=== PATIENT | male | born 1965 | race Caucasian/White ===

== ENCOUNTER 2022-06-24 16:11 | Inpatient (IN) | payer MEDICARE, MEDICAID, SELFPAY ==
--- NOTE | ~2022-06-24 | XR_ITS ---
Clinical Indication: Shortness of breath AP and lateral views of the chest: Comparison: 06/27/2022 Findings: There is mild central congestive change. No focal consolidation or pleural effusion. Cardi omediastinal silhouette is stable, with pacemaker device. Bones and soft tissues are unremarkable. Impression: Mild central congestive change. Stable cardiomegaly with pacemaker device. Reviewed, dictated and finalized at location . Impression: Mild central congestive change. Stable cardiomegaly with pacemaker device.
--- NOTE | ~2022-06-24 | CT_ITS ---
EXAMINATION: CT brain wo con DATE: 06/24/2022 17:26 INDICATION: Altered mental status TECHNIQUE: Computed tomography (CT) of the head was performed without intravenous contrast. Sagittal and coronal reconstructions were performed. The mA was adjusted according to patient size. Iterative reconstruction technique was employed. The dose-length product was 681.00 mGy-cm. COMPARISON: None FINDINGS: Small region of encephalomalacia in the left frontoparietal region consistent with old infarct. Addit ional small old infarcts at the right cerebral hemisphere and at the left basal ganglia involving por tions of the lentiform and caudate nucleus and intervening anterior limb of the internal capsule. Add itional smaller old lacunar infarct at the right thalamus and posterior right basal ganglia. There is mild to moderate scattered white matter hypoattenuation consistent with chronic small vessel ischemi c disease. No acute intracranial hemorrhage, acute infarction or abnormal extra axial fluid collectio n. Symmetric prominence of the sulci and ventricles consistent with mild to moderate diffuse cerebral volume loss. No mass/mass effect. The orbits, paranasal sinuses and mastoid air cells are normal. IMPRESSION: 1. No acute intracranial process. 2. Multiple old infarcts involving the left frontoparietal region, bilateral basal ganglia, right michael lamus and right cerebellar hemisphere. 2. Mild to moderate diffuse volume loss and mild to moderate scattered white matter hypoattenuation c onsistent with chronic small vessel ischemic disease. Reviewed, dictated and finalized at location A. NESS ANALYST SALES OPERATIONS IMPRESSION: 1. No acute intracranial process. 2. Multiple old infarcts involving the left frontoparietal region, bilateral ba felix ganglia, right thalamus and right cerebellar hemisphere. 2. Mild to moderate diffuse volume loss and mild to moderate scattered white ma tter hypoattenuation consistent with chronic small vessel ischemic disease.
--- NOTE | ~2022-06-24 | XR_ITS ---
EXAMINATION: XR chest 2V DATE: 06/24/2022 17:30 INDICATION: Lethargy and altered mental status TECHNIQUE: frontal and lateral views of the chest were obtained. COMPARISON: Chest radiograph dated 06/06/10 FINDINGS: Cardiomegaly with pulmonary vascular congestion. Mild interstitial opacities and peribronchial cuffin g in the bilateral lower lung zones most likely mild pulmonary edema. Very small bilateral pleural ef fusions with blunting at the posterior sulci. No pneumothorax. Dual lead pacemaker/AICD seen with leads projecting over the expected locations of the right atrium a nd right ventricle. IMPRESSION: 1. Mild interstitial opacities and bronchial wall thickening in the lower lung zones and favor conges tive heart failure related mild pulmonary edema over pneumonia. 2. Very small bilateral pleural effusions. 3. Cardiomegaly. Reviewed, dictated and finalized at location A. ARCH CLERK IMPRESSION: 1. Mild interstitial opacities and bronchial wall thickening in the lower lung zones and favor congestive heart failure related mild pulmonary edema over pneu monia. 2. Very small bilateral pleural effusions. 3. Cardiomegaly.
--- NOTE | ~2022-06-24 | CT_ITS ---
EXAMINATION: CT abdomen pelvis w con DATE: 06/24/2022 19:50 INDICATION: Sepsis. Urinary tract infection and lethargy. TECHNIQUE: Computed tomography (CT) of the abdomen and pelvis was performed with 100 mL Omnipaque-350 intravenous contrast. Automated exposure control and iterative reconstruction technique were employe d. The dose-length product was 1153.88 mGy-cm. COMPARISON: None FINDINGS: Small bilateral posterior layering pleural effusions, right greater than left, with associated depend ent compressive atelectasis in the lower lobes. Mild groundglass opacities and minimal peripheral smo oth septal line thickening in the lower lungs consistent with mild pulmonary edema. Moderate cardiome natanael. Atherosclerotic coronary artery calcification is. Dual lead pacemaker/AICD seen with lead tips at the right atrium and right ventricle. No pericardial effusion. Liver, gallbladder, spleen, pancrea s and bilateral adrenal glands are normal. There is calcified atherosclerosis of the aorta and many o f the other arteries including arteries at the bilateral renal kobi. Incidentally noted are 2 accesso ry renal arteries on the right and one additional accessory artery on the left. There is urothelial t hickening at the right renal pelvis suspicious for pyelitis without evident pyelonephritis. Subtle paredes ziness to the fat surrounding the bladder consistent with cystitis and provided history of urinary tr act infection. Bowels including the appendix are normal. No free intraperitoneal gas or fluid. No pat hologically enlarged abdominal or pelvic lymphadenopathy. Moderate thoracic and mild lumbar spondylos is with multilevel moderate to severe facet osteoarthritis. There is also mild to moderate bilateral hip and sacroiliac osteoarthritis. IMPRESSION: 1. Findings suggestive of cystitis and right pyelitis without definitive pyelonephritis. 2. Congestive heart failure with moderate cardiomegaly, mild pulmonary edema and small bilateral pleu ral effusions. Reviewed, dictated and finalized at location A. HING OPERATOR IMPRESSION: 1. Findings suggestive of cystitis and right pyelitis without definitive pyelon ephritis. 2. Congestive heart failure with moderate cardiomegaly, mild pulmonary edema an d small bilateral pleural effusions.
--- NOTE | ~2022-06-24 | XR_ITS ---
EXAMINATION: XR chest 1V portable DATE: 06/27/2022 01:44 INDICATION: Shortness of breath TECHNIQUE: frontal view of the chest was obtained. COMPARISON: Chest radiograph dated 06/24/2022 FINDINGS: Persistent opacities in the left mid to lower and right lower lung zone consistent with likely small bilateral posterior layering pleural effusions and associated atelectasis and/or pneumonia. Cardiomeg jonny. Dual lead pacemaker/AICD seen with leads projecting over the expected locations of the right atr ium and right ventricle. IMPRESSION: 1. Persistent opacities in the left mid to lower and right lower lung zones consistent with small angelita ateral pleural effusions with associated atelectasis and/or pneumonia. 2. Cardiomegaly. Reviewed, dictated and finalized at location A. IMPRESSION: 1. Persistent opacities in the left mid to lower and right lower lung zones con sistent with small bilateral pleural effusions with associated atelectasis and/ or pneumonia. 2. Cardiomegaly.
[2022-06-24 16:15] VITALS: BP 123/67; PULSE 102; RESP 15; O2SAT 98
[2022-06-24 16:40] VITALS: BP 148/92; PULSE 97; RESP 16; TEMP 36.8; O2SAT 100
--- NOTE | 2022-06-24 17:10 | ECG_ITS ---
Measurements Intervals [place] Rate: 105 P: 58 TN: 194 QRS: -42 QRSD: 141 T: 123 QT: 380 QTc: 503 Interpretive Statements SINUS TACHYCARDIA LEFT AXIS DEVIATION LEFT ATRIAL ENLARGEMENT LEFT BUNDLE BRANCH BLOCK ABNORMAL ECG NO PREVIOUS ECG AVAILABLE FOR COMPARISON Electronically Signed On 06-24-2022 19:12:19 [employer] by Papito Sims D.O.
--- NOTE | 2022-06-24 17:13 | ED.RECABL ---
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 Patient does not provide much reliable history. His only complaint is that his blood pressure is probably high although noted to be 123/67 upon arrival. Has history of chronic back pain and he states this is the only area that hurts currently, reports pain near his right flank. History is therefore limited. Spoke with nurse from facility, had 7 days of CTX that finished on 06/21. They are unsure if he has a history of LBBB and have no previous ECGs in the system. No AMS. <Minal Tyler PA-C - Last Filed: 06/25/22 00:34> Related Data Home Medications: Home Medications Medication Instructions Recorded Confirmed acetaminophen 325 mg tablet 325 mg PO Q4H PRN Pain 06/25/22 06/25/22 aspirin 325 mg tablet 325 mg PO DAILY 06/25/22 06/25/22 carvedilol 12.5 mg tablet (Coreg) 12.5 mg PO BID 06/25/22 06/25/22 cholecalciferol (vitamin D3) 25 1,000 unit PO DAILY 06/25/22 06/25/22 mcg (1,000 unit) tablet (Vitamin D3) ergocalciferol (vitamin D2) 1,250 50,000 unit PO WEEKLY 06/25/22 06/25/22 mcg (50,000 unit) capsule (Vitamin D2) ferrous sulfate 325 mg (65 mg 325 mg PO BID 06/25/22 06/25/22 iron) tablet insulin detemir U-100 100 unit/mL 25 unit subcut HS 06/25/22 06/25/22 (3 mL) subcutaneous pen (Levemir FlexTouch U-100 Insulin) insulin lispro 100 unit/mL See Protocol subcut TIDWM 06/25/22 06/25/22 subcutaneous pen metformin 500 mg tablet 500 mg PO BID 06/25/22 06/25/22 polyethylene glycol 3350 17 gram 17 g PO DAILY 06/25/22 06/25/22 oral powder packet (Miralax) <CELSO Schuler Last Filed: 06/25/22 00:34> Allergies/Adverse Reactions: Allergies Allergy/AdvReac Type Severity Reaction Status Date / Time ibuprofen Allergy Unknown Verified 06/25/22 02:13 naproxen Allergy Unknown Verified 06/25/22 02:13 <CELSO Schuler Last Filed: 06/25/22 00:34> Review of Systems Review of Systems: Gen: Denies fevers or chills Eyes: Denies eye pain or visual change ENT: Denies congestion Respiratory: Denies shortness of breath or cough CV: Denies chest pain or palpitations GI: Denies abdominal pain nausea, emesis or diarrhea : denies burning, urgency, frequency or hematuria Musculoskeletal: Denies back pain or muscle pain Neuro: Denies numbness, tingling, weakness or focal weakness Skin: Denies rash Except as documented, all other systems reviewed and negative <CELSO Schuler Last Filed: 06/25/22 00:34> COUNT INCLUDES THE [facility] Social History Social History: Social History Smoking packs per day: 0.5 Smoking cigarettes per day: 10.0 Years smoked: 35 Smoking pack-years: 17.50 Smoking status: Current every day smoker Tobacco type: cigarettes Alcohol intake: former Substance use: never Lack of Transportation: No Lack of Food: Never True Current Housing: I Have Housing Concerned About Future Housing: No Difficulty Paying Gas/Electric Bills: No Difficulty Paying for Meds: No Currently Unemployed: No Education: High School Diploma/GED Difficulty w/ Childcare or Family Care: No Spiritual care concerns: No <CELSO Schuler Last Filed: 06/25/22 00:34> Exam Narrative: APPEARANCE: Disheveled appearing. Head: Normocephalic and atraumatic. EYES: PERRLA/EOMI, conjunctivae clear NOSE: No nasal drainage EARS: External ear normal in appearance THROAT: Oropharynx
[2022-06-24 17:35] LABS: Glucose Point of Care 76 mg/dl (65-105)
[2022-06-24 18:43] LABS: Basophils Absolute Auto 0.2 K/mm3 (0.0-0.1); Basophils Percent Auto 0.8 % (0.2-1.2); Eosinophils Absolute Auto 0.3 K/mm3 (0-0.3); Eosinophils Percent Auto 1.4 % (0-4.4); Hematocrit 35.3 % (42.0-52.0); Immature Granulocyte Absolute 0.09 K/mm3 (0.00-0.031); Immature Granulocyte Percent A 0.5 % (0-0.5); Lymphocytes Percent Auto 15.8 % (18.3-44.2); Mean Corpuscular HGB Conc 31.2 g/dl (32-36); Mean Corpuscular Hemoglobin 29.2 pg (26-34); Mean Corpuscular Volume 93.6 fl (80-100); Mean Platelet Volume 8.9 fl (7.4-10.4); Monocytes Absolute Auto 1.2 K/mm3 (0.1-0.6); Monocytes Percent Auto 6.6 % (2.6-8.5); Neutrophils Absolute Auto 13.3 K/mm3 (1.3-6.7); Neutrophils Percent Auto 74.9 % (45.5-73.1); Platelet Count Result 487 k/mm3 (150-375); Red Blood Count 3.77 M/mm3 (4.6-6.20); White Blood Count 17.8 K/mm3 (4.5-10.0)
[2022-06-24 18:52] LABS: Lactic Acid Reflex 1.2 mmol/L (0.7-2.0)
[2022-06-24 18:53] LABS: Alanine Aminotransferase 19 U/L (6-50); Albumin Level 4.1 g/dL (3.5-5.1); Alkaline Phosphatase 85 U/L (38-126); Ammonia < 9 umol/L (9-30); Anion Gap 5 mmol/L (8-16); Aspartate Amino Transferase 22 U/L (17-59); Bilirubin,Total 0.6 mg/dL (0.2-1.3); Blood Urea Nitrogen 30 mg/dL (9-20); Calcium 9.2 mg/dL (8.4-10.2); Carbon Dioxide 25 mmol/L (22-30); Chloride 106 mmol/L (98-107); Estimated CRCL calculation 85 ml/min; Estimated Glomerular Filt Rate > 60; Glucose 70 mg/dL (65-110); Sodium 136 mmol/L (137-145)
[2022-06-24 19:36] LABS: NT Pro B Type Natriuretic Pept 6340 pg/mL (19.9-100)
[2022-06-24] MEDS: SODIUM CHLORIDE 0.9% IV 1,000 ML 999 ML IV CONT (19:54)
--- NOTE | 2022-06-24 20:13 | PC.NURSE ---
attempted to obtain urine sample from patient at this time. Patient states, I don't need to go right now. I'll let you know when I do.
[2022-06-24] MEDS: CIPROFLOXACIN 400 MG/D5W 200ML 200 ML 200 MG IVPB (21:50)
--- NOTE | 2022-06-24 23:25 | PC.NURSE ---
Attempted to insert coude catheter without success. Minal MARINO notified.
[2022-06-24] MEDS: FUROSEMIDE INJ 40 MG/4 ML VIAL IV PUSH (23:28)
[2022-06-24 23:30] VITALS: BP 138/93; PULSE 116; RESP 24; O2SAT 95
[2022-06-25] VITALS (11 sets, daily range): BP systolic 119–137; BP diastolic 69–89; PULSE 76–112; RESP 20–22; TEMP 35.7–36.6; O2SAT 95–97; BMI 32.1
--- NOTE | 2022-06-25 | ECHO_ITS ---
Patient Info Name: Michael Bradford Age: 56 years : 1965 Gender: Male Ht: 68 in Wt: 231 lbs BSA: 2.28 m2 HR: 88 bpm BP: 119 / 69 mmHg Technical Quality: Good Exam Date: 06/25/2022 10:10 AM Exam Location: [facility] Patient Status: Inpatient Admit Date: 06/25/2022 Staff Ordering Physician: Jose Doherty MD Operations Leader: Cedric Fraga, ANTONIA, RT Attending Provider: Jose Doherty MD Referring Physician: Bessy KIM; Exam Type: CA echo dop color flow w con Study Info Indications I50.9 - Heart failure, unspecified Complete two-dimensional, color flow and Doppler transthoracic echocardiogram is performed with contrast to opacify the left ventricle and to improve the deliniation of the left ventricle endocardial borders. Summary 1. Definity contrast administered improved wall motion interpretation. 2. Left ventricular chamber dimension is severely enlarged. 3. Left ventricular systolic function is severely globally reduced, estimated at <15%. EF measured at 12%. 4. The left ventricular diastolic function is abnormal. 5. E/e' 24 is elevated. 6. Linear artifact in right ventricle suggestive of catheter(s), pacemaker lead(s), or ICD lead(s). 7. Left atrial chamber dimension is mildly enlarged. 8. Linear artifact in the right atrium suggestive of catheter(s), pacemaker lead(s), or ICD lead(s). 9. There is mild aortic valve sclerosis. 10. There is mild aortic valve regurgitation. 11. There is mild to moderate mitral valve regurgitation. 12. Dilated inferior vena cava with >50% collapse upon inspiration consistent with elevated right atrial pressure, 10 mmHg. Left Ventricle E/e' 24 is elevated. Definity contrast administered improved wall motion interpretation. Left ventricular chamber dimension is severely enlarged. Left ventricular systolic function is severely globally reduced, estimated at <15%. EF measured at 12%. The left ventricular diastolic function is abnormal. Right Ventricle Right ventricular systolic function is normal and with normal TAPSE 2.4 cm. Linear artifact in right ventricle suggestive of catheter(s), pacemaker lead(s), or ICD lead(s). Right ventricular chamber dimension is normal. Left Atria Left atrial chamber dimension is mildly enlarged. Right Atria Linear artifact in the right atrium suggestive of catheter(s), pacemaker lead(s), or ICD lead(s). Right atrial chamber dimension is normal. Aortic Valve The aortic valve is trileaflet. There is mild aortic valve sclerosis. There is no aortic valve stenosis. There is mild aortic valve regurgitation. Pulmonic Valve There is no pulmonic regurgitation. Mitral Valve There is no mitral valve stenosis. There is mild to moderate mitral valve regurgitation. Tricuspid Valve There is no tricuspid valve regurgitation. Pericardium/Pleural There is no pericardial effusion. Inferior Vena Cava Dilated inferior vena cava with >50% collapse upon inspiration consistent with elevated right atrial pressure, 10 mmHg. Aorta The aortic root size at the sinus of Valsalva is normal. Left Ventricular Outflow Tract Name Value Normal LVOT 2D LVOT Diameter 2.41 cm LVOT Doppler --------
--- NOTE | 2022-06-25 00:05 | PC.NURSE ---
Pt was incontinent of small amount of urine. Was able to collect apprxox 5-10ml to send to lab for urinalysis.
--- NOTE | 2022-06-25 00:24 | PM.IMHP ---
H&P: HPI History of Present Illness Date/Time: 06/25/22 00:24 Chief Complaint: Altered mental status Narrative: This is a 56-year-old male jail resident past medical history significant for multiple strokes, right-sided hemiparesis, AICD, aphasia, congestive heart failure, is brought to the emergency room for evaluation of lethargy patient had concluded treatment for urinary tract infection through PICC line. Preliminary workup was significant for CBC with a leukocyte count 17,000, had a BNP upwards 6000. A URINALYSIS SHOWED MULTIPLE WBCS PRESENT. A CT of abdomen and pelvis was reported as: FINDINGS: Small bilateral posterior layering pleural effusions, right greater than left, with associated dependent compressive atelectasis in the lower lobes. Mild groundglass opacities and minimal peripheral smooth septal line thickening in the lower lungs consistent with mild pulmonary edema. Moderate cardiomegaly. Atherosclerotic coronary artery calcification is. Dual lead pacemaker/AICD seen with lead tips at the right atrium and right ventricle. No pericardial effusion. Liver, gallbladder, spleen, pancreas and bilateral adrenal glands are normal. There is calcified atherosclerosis of the aorta and many of the other arteries including arteries at the bilateral renal kobi. Incidentally noted are 2 accessory renal arteries on the right and one additional accessory artery on the left. There is urothelial thickening at the right renal pelvis suspicious for pyelitis without evident pyelonephritis. Subtle haziness to the fat surrounding the bladder consistent with cystitis and provided history of urinary tract infection. Bowels including the appendix are normal. No free intraperitoneal gas or fluid. No pathologically enlarged abdominal or pelvic lymphadenopathy. Moderate thoracic and mild lumbar spondylosis with multilevel moderate to severe facet osteoarthritis. There is also mild to moderate bilateral hip and sacroiliac osteoarthritis. IMPRESSION: 1. Findings suggestive of cystitis and right pyelitis without definitive pyelonephritis. 2. Congestive heart failure with moderate cardiomegaly, mild pulmonary edema and small bilateral pleural effusions. A chest x-ray was reported as: FINDINGS: Cardiomegaly with pulmonary vascular congestion. Mild interstitial opacities and peribronchial cuffing in the bilateral lower lung zones most likely mild pulmonary edema. Very small bilateral pleural effusions with blunting at the posterior sulci. No pneumothorax. Dual lead pacemaker/AICD seen with leads projecting over the expected locations of the right atrium and right ventricle. ? IMPRESSION: 1. Mild interstitial opacities and bronchial wall thickening in the lower lung zones and favor congestive heart failure related mild pulmonary edema over pneumonia. 2. Very small bilateral pleural effusions. 3. Cardiomegaly. Review of Systems Review of Systems: ROS unobtainable: Yes unobtainable due to mental status (Lethargy) and other (Aphasia) Meds Home Medications and Allergies Allergies Allergy/AdvReac Type Severity Reaction Status Date / Time ibuprofen Allergy Verified 07/01/13 01:30 naproxen Allergy Verified 07/01/13 01:30 Vital Signs Vital Signs - 24 hr 06/24/22 16:15 06/24/22 16:40 06/24/22 23:30 Temperature 98.2 F Pulse Rate 102 H 97 116 H Respiratory Rate 15 16 24 H Blood Pressure 123/67 148/92 H 138/93 H Pulse Oximetry 98 100 95 Oxygen Delivery Room Air Exam Narrative: Patient is laying in a stretcher Const: General: comfortable, no acute distress, well developed, alert, awake, ill appearing acutely and average body habitus Nutritional Appearance: average body habitus Orientation/consciousness: oriented to person, oriented to place and Other orientation findings (Aphasia) HENMT: Head: normal to inspection, normocephalic and atraumatic Ears: hearing grossly normal bilaterally Face/Nose/Sinus: normal facial exam Face and si
[2022-06-25] MEDS: PIPERACILLN/TAZ 3.375GM/NS50ML 3.375 GM/50 ML BAG IVPB ×4 (00:50→17:51)
[2022-06-25] MEDS: carvediloL 25 MG TABLET PO (00:51)
[2022-06-25 01:09] LABS: Appearance Urine Cloudy (Clear); Bacteria Urine Rare /hpf; Bilirubin Urine Negative (Negative); Blood Urine 2+ (Negative); Budding Yeast Urine Present /hpf; Color Urine Yellow (Yellow); Glucose Urine UA Negative (Negative); Ketones Urine Negative (Negative); Leukocyte Esterase Ur 3+ LEU/UL (Negative); Mucus Urine Present /lpf; Nitrate Urine Negative (Negative); Protein Urine 1+ mg/dL (Negative); RBC Urine 21-50 /hpf (0-2); Specific Grav Ur 1.029 (1.001-1.035); Squamous Epithelial Cell Urine None seen /hpf (Few); Urobilinogen Urine 0.2 mg/dL (<2.0); WBC Urine >100 /hpf
[2022-06-25 01:12] LABS: Add Urine Microscopic? YES
--- NOTE | 2022-06-25 02:07 | ADMGEN ---
This patient, Michael Bradford, was admitted to Medical Room 341-01. Patient/family oriented to hospital policies and general routines including ID bracelet, bed and alarms, visiting hours, pain management, procedures, bathroom and other care routines, personal items, smoking policy, room service/diet, and visiting hours. Information on how to activate the Rapid Response Team has been discussed. Patient/Family are encouraged to report perceived risks to care and to ask questions if they do not understand what they are told or what they should do.
[2022-06-25] MEDS: PERFLUTREN LIPID MICROSPHERES 1.5 ML VIAL DILUTED TO 10 ML TOTAL VOLUME IV PUSH (10:27)
--- NOTE | 2022-06-25 10:27 | IVDEFINITY ---
Prior to administration of IV Definity the patient was educated on the risks and benefits of the imaging enhancing agent including potential adverse side effects. The patient verbalized understanding. Allergies were verified. No exclusion criteria were identified and at least one of the following inclusion criteria were met: 1) physician request, 2) patient technically difficult to image (per the [place] [employer] guidelines of two or more segments not discernable within the apical view), or 3) questionable left ventricular function. ?
--- NOTE | 2022-06-25 13:11 | PM.IMPN ---
Progress Note: A&P Assessment and Plan (1) Acute pyelitis: Code(s): N10 - Acute pyelonephritis Status: Acute Assessment and Plan: Continue IV antibiotics (2) Acute on chronic diastolic congestive heart failure, NYHA class 4: Code(s): I50.33 - Acute on chronic diastolic (congestive) heart failure Status: Acute Assessment and Plan: Lasix as needed, appears relatively euvolemic at this time (3) Chronic arterial ischemic stroke: Code(s): I69.30 - Unspecified sequelae of cerebral infarction Status: Acute Assessment and Plan: Stable, at baseline (4) Hemiparesis: Code(s): G81.90 - Hemiplegia, unspecified affecting unspecified side Status: Acute Assessment and Plan: Stable, at baseline (5) AICD (automatic cardioverter/defibrillator) present: Code(s): Z95.810 - Presence of automatic (implantable) cardiac defibrillator Status: Acute (6) Urinary tract infection: Code(s): N39.0 - Urinary tract infection, site not specified Status: Acute Assessment and Plan: IV antibiotics as above, follow urine culture (7) Aphasia: Code(s): R47.01 - Aphasia Status: Acute Assessment and Plan: Stable at baseline Plan DVT prophylaxis with SCDs GI prophylaxis not indicated Code status full code Subjective Date/time seen: 06/25/22 13:11 Interval history: 56-year-old male senior living resident with past medical history significant for multiple strokes and remaining right-sided hemiparesis, heart failure with an EF of 10-15%, AICD placement, aphasia presenting with lethargy thought to be secondary to cystitis/pyelitis, started on vancomycin and Zosyn 06/25, also thought to have acute on chronic heart failure exacerbation being treated with IV diuresis prn. Patient's was at bedside and requested Urology consultation due to recurrent UTIs concerning for underlying prostate issue. She states he looks much better than when he came in. Review of Systems Review of Systems: ROS unobtainable: Yes unobtainable due to mental status Exam Narrative: General: No acute distress, alert and oriented per baseline HEENT: Atraumatic, normocephalic, mucous membranes moist CV: Regular rate and rhythm, S1, S2 Lungs: Clear to auscultation bilaterally, no rales or crackles noted, no wheezes, good air entry Abdomen: Soft, nontender, nondistended Extremities: Normal to inspection Skin: No rashes noted, no lesions or wounds seen Psych: Unable to assess Objective Data Vital Signs Vital Signs: Vital Signs - 24 hr 06/24/22 16:15 06/24/22 16:40 06/24/22 23:30 Temperature 98.2 F Pulse Rate 102 H 97 116 H Respiratory Rate 15 16 24 H Blood Pressure 123/67 148/92 H 138/93 H Pulse Oximetry 98 100 95 Oxygen Delivery Room Air 06/25/22 00:51 06/25/22 01:23 06/25/22 04:00 Temperature Pulse Rate 112 H 106 H 76 Respiratory Rate 20 Blood Pressure 137/89 Pulse Oximetry 96 Oxygen Delivery 06/25/22 05:52 06/25/22 09:26 Temperature 97.9 F Pulse Rate 90 Respiratory Rate 22 H Blood Pressure 119/69 Pulse Oximetry 95 Oxygen Delivery Room Air Intake/Output Intake/Output: Intake & Output 06/22/22 06/23/22 06/24/22 06/25/22 23:59 23:59 23:59 23:59 Intake Total 1000 640 Balance 1000 640 Meds/Results Medications: Active Medications Generic Name Dose Route Start Last Admin Trade Name Freq PRN Reason Stop Dose Admin Piperacillin/Tazobactam/Dextrose 3.375 gm in 50 mls @ 100 mls/hr 06/25/22 06:00 06/25/22 12:31 Zosyn 3.375 Gm/Ns 50 Ml IVPB 100 mls/hr Q6H CRUZ Administration Vancomycin HCl 1,500 mg in 500 mls @ 250 mls/hr 06/25/22 14:00 Vancomycin 1,500 Mg/D5w 500 Ml IVPB Q12H [facility] Radiology Results: ITS Impressions Head CT 06/24/22 17:28 IMPRESSION: 1. No acute intracranial process. 2. Multiple old infarcts involving the left fr
[2022-06-25] MEDS: carvediloL 12.5 MG TABLET PO (17:20)
[2022-06-25] MEDS: metFORMIN HCL 500 MG TABLET PO (17:21)
[2022-06-25] MEDS: FERROUS SULFATE 324 MG TABLET PO (17:21)
[2022-06-25] MEDS: INSULIN GLARGINE (*BKC) 100 UNITS/ML 25 UNITS SUB-Q (20:42)
[2022-06-25] MEDS: CENTRAL LINE FLUSH 10 ML IV PUSH (20:46)
[2022-06-25 21:23] LABS: Glucose Point of Care 201 mg/dl (65-105)
[2022-06-26] VITALS (12 sets, daily range): BP systolic 117–143; BP diastolic 77–87; PULSE 88–104; RESP 20; TEMP 36.2–36.5; O2SAT 97–99
[2022-06-26] MEDS: PIPERACILLN/TAZ 3.375GM/NS50ML 3.375 GM/50 ML BAG IVPB ×4 (00:36→17:32)
[2022-06-26 03:55] LABS: Basophils Absolute Auto 0.2 K/mm3 (0.0-0.1); Basophils Percent Auto 1.4 % (0.2-1.2); Eosinophils Absolute Auto 0.4 K/mm3 (0-0.3); Hematocrit 32.8 % (42.0-52.0); Hemoglobin 10.2 g/dL (14.0-18.0); Immature Granulocyte Absolute 0.07 K/mm3 (0.00-0.031); Immature Granulocyte Percent A 0.5 % (0-0.5); Lymphocytes Absolute Auto 3.89 K/mm3 (0.9-3.2); Lymphocytes Percent Auto 27.9 % (18.3-44.2); Mean Corpuscular HGB Conc 31.1 g/dl (32-36); Mean Corpuscular Hemoglobin 29.1 pg (26-34); Mean Corpuscular Volume 93.7 fl (80-100); Mean Platelet Volume 8.9 fl (7.4-10.4); Monocytes Absolute Auto 1.2 K/mm3 (0.1-0.6); Monocytes Percent Auto 8.7 % (2.6-8.5); Neutrophils Absolute Auto 8.2 K/mm3 (1.3-6.7); Neutrophils Percent Auto 58.5 % (45.5-73.1); Platelet Count Result 412 k/mm3 (150-375); Red Cell Distribution Width 15.1 % (11.5-14.5); White Blood Count 13.9 K/mm3 (4.5-10.0)
[2022-06-26 04:04] LABS: Alanine Aminotransferase 15 U/L (6-50); Albumin Level 3.7 g/dL (3.5-5.1); Alkaline Phosphatase 68 U/L (38-126); Anion Gap 3 mmol/L (8-16); Aspartate Amino Transferase 15 U/L (17-59); Bilirubin,Total 0.7 mg/dL (0.2-1.3); Blood Urea Nitrogen 25 mg/dL (9-20); Calcium 8.4 mg/dL (8.4-10.2); Carbon Dioxide 24 mmol/L (22-30); Chloride 102 mmol/L (98-107); Estimated CRCL calculation 68 ml/min; Estimated Glomerular Filt Rate > 60; Glucose 106 mg/dL (65-110); Potassium 3.9 mmol/L (3.4-5.0); Sodium 129 mmol/L (137-145)
[2022-06-26 05:05] LABS: Hemoglobin A1C 6.3 % (<5.7)
[2022-06-26] MEDS: CENTRAL LINE FLUSH 10 ML IV PUSH ×3 (06:57→20:55)
[2022-06-26 08:34] LABS: Glucose Point of Care 417 mg/dl (65-105)
[2022-06-26] MEDS: polyethylene glycoL 3350 17 GM POWD.PACK PO (09:46)
[2022-06-26] MEDS: CHOLECALCIFEROL 1,000 UNITS TABLET 1000 UNITS PO (09:47)
[2022-06-26] MEDS: metFORMIN HCL 500 MG TABLET PO ×2 (09:47→17:28)
[2022-06-26] MEDS: carvediloL 12.5 MG TABLET PO ×2 (09:47→17:29)
[2022-06-26] MEDS: FERROUS SULFATE 324 MG TABLET PO ×2 (09:47→17:29)
[2022-06-26] MEDS: ASPIRIN 325 MG TABLET PO (09:47)
[2022-06-26 09:58] LABS: Glucose Point of Care 147 mg/dl (65-105)
--- NOTE | 2022-06-26 10:53 | PM.IMPN ---
Progress Note: A&P Assessment and Plan (1) Acute pyelitis: Code(s): N10 - Acute pyelonephritis Status: Acute Assessment and Plan: Continue IV antibiotics for now, no signs of infection on exam or labs, imaging showed cystitis and pyelitis, however, he recently finished course of abx and this could be residual? will d/c vanc today and consider d/c zosyn tomorrow check CRP/PCT started on vanc + zosyn 06/25 blood cultures NGTD urine culture showed mixed estella? could be negative due to recent UTI treated with rocephin via PICC until 06/21 (2) Acute on chronic diastolic congestive heart failure, NYHA class 4: Code(s): I50.33 - Acute on chronic diastolic (congestive) heart failure Status: Acute Assessment and Plan: Lasix as needed, appears relatively euvolemic at this time consult cardiology for medication optimization, suspect symptoms are 2/2 severe HF, no signs of infection to explain symptoms (3) Chronic arterial ischemic stroke: Code(s): I69.30 - Unspecified sequelae of cerebral infarction Status: Acute Assessment and Plan: Stable, at baseline (4) Hemiparesis: Code(s): G81.90 - Hemiplegia, unspecified affecting unspecified side Status: Acute Assessment and Plan: Stable, at baseline (5) AICD (automatic cardioverter/defibrillator) present: Code(s): Z95.810 - Presence of automatic (implantable) cardiac defibrillator Status: Acute (6) Urinary tract infection: Code(s): N39.0 - Urinary tract infection, site not specified Status: Acute Assessment and Plan: urine culture showed no infection, mixed estella, see above for details (7) Aphasia: Code(s): R47.01 - Aphasia Status: Acute Assessment and Plan: Stable at baseline Plan DVT prophylaxis with SCDs GI prophylaxis not indicated Code status full code Subjective Date/time seen: 06/26/22 10:53 Interval history: 56-year-old male [facility] resident with past medical history significant for multiple strokes and remaining right-sided hemiparesis, heart failure with an EF of 10-15%, AICD placement, aphasia presenting with lethargy thought to be secondary to cystitis/pyelitis, started on vancomycin and Zosyn 06/25, also thought to have acute on chronic heart failure exacerbation being treated with IV diuresis prn. Patient still feeling weak and lethargic. No fevers, no overnight events. No CP, SOB, NVD. Review of Systems Review of Systems: 12 point review of systems was assessed and was negative except as noted in the HPI Exam Narrative: General: No acute distress, alert and oriented per baseline HEENT: Atraumatic, normocephalic, mucous membranes moist CV: Regular rate and rhythm, S1, S2 Lungs: Clear to auscultation bilaterally, no rales or crackles noted, no wheezes, good air entry Abdomen: Soft, nontender, nondistended Extremities: 1+ pitting edema bilateral lower extremities Skin: No rashes noted, no lesions or wounds seen Psych: Unable to assess Objective Data Vital Signs Vital Signs: Vital Signs - 24 hr 06/25/22 12:05 06/25/22 14:00 06/25/22 16:04 Temperature 96.2 F L Pulse Rate 94 93 92 Respiratory Rate 20 Blood Pressure 122/69 Pulse Oximetry 97 Oxygen Delivery 06/25/22 17:20 06/25/22 20:26 06/25/22 20:00 Temperature 97.6 F Pulse Rate 98 91 89 Respiratory Rate 20 Blood Pressure 120/73 Pulse Oximetry 97 Oxygen Delivery 06/25/22 20:00 06/26/22 00:00 06/26/22 04:53 Temperature Pulse Rate 90 89 Respiratory Rate Blood Pressure Pulse Oximetry Oxygen Delivery Room Air 06/26/22 05:33 06/26/22 09:47 Temperature 97.7 F Pulse Rate 95 103 H Respiratory Rate 20 Blood Pressure 143/87 H Pulse Oximetry 99 Oxygen Delivery Intake/Output Intake/Output: Intake & Output 06/23/22 06/24/22 06/25/22 06/26/22 23:59 23:59 23:59 23:59 Intake Total
[2022-06-26 11:18] LABS: CRP 1.1 mg/dL (<1.0)
[2022-06-26 12:41] LABS: Procalcitonin 0.2 ng/mL
[2022-06-26 12:49] LABS: Glucose Point of Care 193 mg/dl (65-105)
[2022-06-26 16:48] LABS: Glucose Point of Care 125 mg/dl (65-105)
[2022-06-26] MEDS: INSULIN GLARGINE (*BKC) 100 UNITS/ML 25 UNITS SUB-Q (20:54)
[2022-06-26 21:08] LABS: Glucose Point of Care 332 mg/dl (65-105)
[2022-06-26] MEDS: INSULIN ASPART (*BKC) 100 UNITS/ML 6 UNITS SUB-Q (22:20)
[2022-06-27] VITALS (17 sets, daily range): BP systolic 110–136; BP diastolic 65–86; PULSE 73–101; RESP 12–26; TEMP 35.9–36.7; O2SAT 96–100
[2022-06-27] MEDS: PIPERACILLN/TAZ 3.375GM/NS50ML 3.375 GM/50 ML BAG IVPB ×4 (00:46→18:57)
[2022-06-27] MEDS: IPRATROPIUM BR 0.02% INH SOLN 0.5 MG/2.5 ML VIAL INHALATION (01:23)
[2022-06-27] MEDS: ALBUTEROL SULFATE NEB 2.5 MG/3 ML INH INHALATION (01:23)
[2022-06-27] MEDS: FUROSEMIDE INJ 40 MG/4 ML VIAL IV PUSH ×2 (03:04→17:36)
--- NOTE | 2022-06-27 04:05 | PC.NURSE ---
Daylight Savings Time For Daylight Savings Time Ending in the Fall - Clocks are moved back. For Daylight Savings Time Beginning in the Spring - Clocks are moved ahead. For [facility], the time of change occurs at 0200 hrs. Time is taken from the line server. This entry on the patient's chart recognizes the change in time reflected during documentation. Example: 2 entries for vital signs may be charted for 0200 hrs.
[2022-06-27 04:36] LABS: Glucose Point of Care 94 mg/dl (65-105)
[2022-06-27 04:38] LABS: Basophils Absolute Auto 0.2 K/mm3 (0.0-0.1); Eosinophils Absolute Auto 0.2 K/mm3 (0-0.3); Eosinophils Percent Auto 1.2 % (0-4.4); Hematocrit 32.2 % (42.0-52.0); Hemoglobin 10.5 g/dL (14.0-18.0); Immature Granulocyte Absolute 0.07 K/mm3 (0.00-0.031); Immature Granulocyte Percent A 0.4 % (0-0.5); Lymphocytes Percent Auto 16.1 % (18.3-44.2); Mean Corpuscular HGB Conc 32.6 g/dl (32-36); Mean Corpuscular Hemoglobin 29.9 pg (26-34); Mean Corpuscular Volume 91.7 fl (80-100); Mean Platelet Volume 8.6 fl (7.4-10.4); Monocytes Absolute Auto 1.3 K/mm3 (0.1-0.6); Monocytes Percent Auto 7.8 % (2.6-8.5); Neutrophils Absolute Auto 11.9 K/mm3 (1.3-6.7); Neutrophils Percent Auto 73.5 % (45.5-73.1); Platelet Count Result 420 k/mm3 (150-375); Red Blood Count 3.51 M/mm3 (4.6-6.20); Red Cell Distribution Width 14.9 % (11.5-14.5); White Blood Count 16.2 K/mm3 (4.5-10.0)
[2022-06-27 04:46] LABS: Sodium 129 mmol/L (137-145)
[2022-06-27 04:51] LABS: Alanine Aminotransferase 16 U/L (6-50); Albumin Level 3.7 g/dL (3.5-5.1); Alkaline Phosphatase 69 U/L (38-126); Anion Gap 4 mmol/L (8-16); Aspartate Amino Transferase 19 U/L (17-59); Bilirubin,Total 0.9 mg/dL (0.2-1.3); Blood Urea Nitrogen 22 mg/dL (9-20); Calcium 8.4 mg/dL (8.4-10.2); Carbon Dioxide 26 mmol/L (22-30); Chloride 99 mmol/L (98-107); Estimated CRCL calculation 63 ml/min; Estimated Glomerular Filt Rate 57; Glucose 75 mg/dL (65-110); Potassium 3.9 mmol/L (3.4-5.0)
--- NOTE | 2022-06-27 05:09 | PC.NURSE ---
0441: FOLLOW UP ON PATIENTS C/O SHORTNESS OF BREATH. VERIFIED WITH PHYSICIAN CHEST XRAY WAS AVAILABLE FOR VIEWING. 1L O2 APPLIED FOR PATIENT COMFORT AND HOB IS ELEVATED. PATIENT MAINTAINS HIS DIFFICULTY BREATHING. PER PHYSICIAN MORPHINE 2MG IV ONCE FOR PATIENT COMFORT.
[2022-06-27] MEDS: CENTRAL LINE FLUSH 10 ML IV PUSH ×3 (05:52→22:08)
[2022-06-27 06:00] LABS: Glucose Point of Care 76 mg/dl (65-105)
[2022-06-27 08:56] LABS: Glucose Point of Care 75 mg/dl (65-105)
[2022-06-27] MEDS: ASPIRIN 325 MG TABLET PO (09:08)
[2022-06-27] MEDS: metFORMIN HCL 500 MG TABLET PO ×2 (09:08→17:35)
[2022-06-27] MEDS: polyethylene glycoL 3350 17 GM POWD.PACK PO (09:08)
[2022-06-27] MEDS: carvediloL 12.5 MG TABLET PO ×2 (09:09→17:35)
[2022-06-27] MEDS: ERGOCALCIFEROL 50,000 UNITS CAPSULE 50000 UNITS PO (09:09)
[2022-06-27] MEDS: FERROUS SULFATE 324 MG TABLET PO ×2 (09:09→17:35)
[2022-06-27] MEDS: CHOLECALCIFEROL 1,000 UNITS TABLET 1000 UNITS PO (09:09)
[2022-06-27 12:00] LABS: Glucose Point of Care 130 mg/dl (65-105)
--- NOTE | 2022-06-27 13:13 | PM.IMPN ---
Progress Note: A&P Assessment and Plan (1) Acute pyelitis: Code(s): N10 - Acute pyelonephritis Status: Acute Assessment and Plan: Continue IV antibiotics for now, no signs of infection on exam or labs, imaging showed cystitis and pyelitis, however, he recently finished course of abx and this could be residual? started on vanc + zosyn 06/25, vanc d/c 06/26, restarted 06/27 due to worsening leukocytosis and positive MRSA swab will pull PICC and send for culture, possible source for infection? blood cultures remain NGTD urine culture showed mixed estella? could be negative due to recent UTI treated with rocephin via PICC until 06/21 Crp 1.1 06/26 PCT 0.2 06/26 (2) Acute on chronic diastolic congestive heart failure, NYHA class 4: Code(s): I50.33 - Acute on chronic diastolic (congestive) heart failure Status: Acute Assessment and Plan: Appreciate cardiology consultation, started on IV Lasix twice daily, continue Coreg and started low-dose Entresto and Jardiance, monitor (3) Chronic arterial ischemic stroke: Code(s): I69.30 - Unspecified sequelae of cerebral infarction Status: Acute Assessment and Plan: Stable, at baseline (4) Hemiparesis: Code(s): G81.90 - Hemiplegia, unspecified affecting unspecified side Status: Acute Assessment and Plan: Stable, at baseline (5) AICD (automatic cardioverter/defibrillator) present: Code(s): Z95.810 - Presence of automatic (implantable) cardiac defibrillator Status: Acute (6) Urinary tract infection: Code(s): N39.0 - Urinary tract infection, site not specified Status: Acute Assessment and Plan: urine culture showed no infection, mixed estella, see above for details (7) Aphasia: Code(s): R47.01 - Aphasia Status: Acute Assessment and Plan: Stable at baseline Plan DVT prophylaxis with SCDs GI prophylaxis not indicated Code status full code Subjective Date/time seen: 06/27/22 13:13 Interval history: 56-year-old male residential resident with past medical history significant for multiple strokes and remaining right-sided hemiparesis, heart failure with an EF of 10-15%, AICD placement, aphasia presenting with lethargy thought to be secondary to cystitis/pyelitis, started on vancomycin and Zosyn 06/25, also thought to have acute on chronic heart failure exacerbation being treated with IV diuresis prn. Patient states he feels about the same as yesterday. Still quite weak and lethargic. No overnight events noted. No chest pain or shortness of breath. No nausea, vomiting or diarrhea. No fevers or chills. Review of Systems Review of Systems: 12 point review of systems was assessed and was negative except as noted in the HPI Exam Narrative: General: No acute distress, alert and oriented per baseline HEENT: Atraumatic, normocephalic, mucous membranes moist CV: Regular rate and rhythm, S1, S2 Lungs: Clear to auscultation bilaterally, no rales or crackles noted, no wheezes, good air entry Abdomen: Soft, nontender, nondistended Extremities: 1+ pitting edema bilateral lower extremities Skin: No rashes noted, no lesions or wounds seen Psych: Euthymic, irritable Objective Data Vital Signs Vital Signs: Vital Signs - 24 hr 06/26/22 14:00 06/26/22 16:00 06/26/22 17:29 Temperature 97.1 F L Pulse Rate 90 95 92 Respiratory Rate 20 Blood Pressure 117/77 Pulse Oximetry 97 Oxygen Delivery 06/26/22 21:46 06/26/22 20:00 06/27/22 01:17 Temperature 97.7 F Pulse Rate 94 100 Respiratory Rate 20 20 Blood Pressure 135/78 136/86 Pulse Oximetry 97 100 Oxygen Delivery Room Air Room Air 06/27/22 01:30 06/27/22 01:44 06/27/22 01:45 Temperature Pulse Rate 96 96 86 Respiratory Rate 26 H 26 H 26 H Blood Pressure Pulse Oximetry 98 Oxygen Delivery Room Air 06/26/22 20:00 06/27/22 00:00 06/27/22 04:00 Temper
--- NOTE | 2022-06-27 13:25 | PM.CNCAR ---
Assessment and Plan Assessment and plan (1) Acute on chronic systolic (congestive) heart failure: Code(s): I50.23 - Acute on chronic systolic (congestive) heart failure Status: Acute Assessment and Plan: Patient has signs of volume overload. Will start IV Lasix BID. Please monitor strict I/Os, daily weights. As for his GDMT, continue Coreg. Will start low-dose Entresto and Jardiance. Monitor electrolytes and renal function. Given his mental status, patient hasn't received any of his oral medications today. Start Entresto and Jardiance when able to tolerate oral intake. (2) AICD (automatic cardioverter/defibrillator) present: Code(s): Z95.810 - Presence of automatic (implantable) cardiac defibrillator Status: Acute Assessment and Plan: Will have his device ([employer]) interrogated. (3) Coronary artery disease: Code(s): I25.10 - Atherosclerotic heart disease of [place] coronary artery without angina pectoris Status: Acute Assessment and Plan: Stable from a CAD standpoint. Continue ASA. Consider starting statin if no contraindication. History of Present Illness History of Present Illness Consult date/time: 06/27/22 13:25 Requesting physician: Vandana King DO Consult reason: congestive heart failure Reason For Visit: uti with pyelitis Narrative: We are consulted for congestive heart failure. Patient is difficult to arouse today and unable to engage in conversation, therefore, all history obtained from patient's chart, medical team, and external records. Patient is a 56-year-old male with a history of multiple strokes, right sided hemiparesis, dual chamber ICD, congestive heart failure, ischemic cardiomyopathy, CAD. Patient was brought to the ER for evaluation of lethargy. Was just treated for a UTI through PICC line. Lives in a skilled nursing. Echocardiogram done this admission shows LVEF 12%, LV severely enlarged, mild-moderate TR. No prior cardiac evalaution or notes in our EMR, however, review of outside records in [facility] system shows: Known history of ischemic cardiomyopathy with EF of 10% in the past Per last notes from 2017: Cardiac cath shoed EF of 10%, and showed multiple occlusions of coronary artery vessels noted from cardiac cath 01/25/2017. There is 100% occlusion of the 1st diagonal branches with mild plaque in the LAD, 60% OM, 100% proximal-mid CARDIAC EXERCISE PHYSIOLOGIST of RCA with filling of distal vessels via bridging collaterals and left to right collaterals. During that hospitalization in 2017, patient was discharged on Entresto, ASA, Coreg, Aldactone. I do not see any recent cardiology notes since 2017 (was by [facility]). Unclear if patient follows with Cardiology since then. Home meds have Coreg listed, but I do not see other GDMT. Review of Systems Review of Systems: ROS unobtainable: Yes unobtainable due to mental status [facility] Social History Social History Smoking packs per day: 0.5 Smoking cigarettes per day: 10.0 Years smoked: 35 Smoking pack-years: 17.50 Smoking status: Current every day smoker Tobacco type: cigarettes Alcohol intake: former Substance use: never Lack of Transportation: No Lack of Food: Never True Current Housing: I Have Housing Concerned About Future Housing: No Difficulty Paying Gas/Electric Bills: No Difficulty Paying for Meds: No Currently Unemployed: No Education: High School Diploma/GED Difficulty w/ Childcare or Family Care: No Spiritual care concerns: No Comments Past medical history: History of multiple strokes, right sided hemiparesis, dual chamber ICD, congestive heart failure, ischemic cardiomyopathy, CAD Surgical history: Dual chamber ICD Family history: Reviewed and non-contributory Meds Home Medications and Allergies Home Medications Medication Instructions Recorded Confirmed Type acetaminophen 325 mg tablet 325 mg PO Q4H PRN Pain
[2022-06-27 15:17] LABS: Vancomycin Random 21.2 ug/mL (10-20)
[2022-06-27 17:14] LABS: Glucose Point of Care 90 mg/dl (65-105)
[2022-06-27 20:24] LABS: Glucose Point of Care 209 mg/dl (65-105)
[2022-06-27] MEDS: VANCOMYCIN HCL 750 MG in SODIUM CHLORIDE 0.9% IV 250 ML 250 MG IVPB (21:05)
[2022-06-27] MEDS: SACUBITRIL/VALSARTAN 24-26 MG TABLET 1 TAB PO (21:05)
[2022-06-27] MEDS: INSULIN GLARGINE (*BKC) 100 UNITS/ML 10 UNITS SUB-Q (21:15)
[2022-06-27] MEDS: SALINE LOCK FLUSH 10 ML IV PUSH (22:08)
[2022-06-28] VITALS (13 sets, daily range): BP systolic 112–123; BP diastolic 69–70; PULSE 64–87; RESP 16–18; TEMP 36.2–36.7; O2SAT 97–100
[2022-06-28] MEDS: PIPERACILLN/TAZ 3.375GM/NS50ML 3.375 GM/50 ML BAG IVPB ×4 (00:09→18:02)
[2022-06-28] MEDS: CENTRAL LINE FLUSH 10 ML IV PUSH ×3 (06:15→21:24)
[2022-06-28] MEDS: SALINE LOCK FLUSH 10 ML IV PUSH ×2 (06:15→21:24)
[2022-06-28 06:31] LABS: Basophils Absolute Auto 0.2 K/mm3 (0.0-0.1); Basophils Percent Auto 1.5 % (0.2-1.2); Eosinophils Absolute Auto 0.3 K/mm3 (0-0.3); Eosinophils Percent Auto 2.4 % (0-4.4); Hemoglobin 11.7 g/dL (14.0-18.0); Immature Granulocyte Absolute 0.06 K/mm3 (0.00-0.031); Immature Granulocyte Percent A 0.4 % (0-0.5); Lymphocytes Percent Auto 25.6 % (18.3-44.2); Mean Corpuscular HGB Conc 31.6 g/dl (32-36); Mean Corpuscular Hemoglobin 29.5 pg (26-34); Mean Corpuscular Volume 93.2 fl (80-100); Mean Platelet Volume 8.7 fl (7.4-10.4); Monocytes Absolute Auto 1.6 K/mm3 (0.1-0.6); Monocytes Percent Auto 11.4 % (2.6-8.5); Neutrophils Absolute Auto 8.2 K/mm3 (1.3-6.7); Neutrophils Percent Auto 58.7 % (45.5-73.1); Platelet Count Result 416 k/mm3 (150-375); Red Blood Count 3.97 M/mm3 (4.6-6.20); White Blood Count 14.1 K/mm3 (4.5-10.0)
[2022-06-28 07:03] LABS: Alanine Aminotransferase 14 U/L (6-50); Albumin Level 3.8 g/dL (3.5-5.1); Alkaline Phosphatase 69 U/L (38-126); Anion Gap 7 mmol/L (8-16); Aspartate Amino Transferase 18 U/L (17-59); Bilirubin,Total 0.8 mg/dL (0.2-1.3); Blood Urea Nitrogen 21 mg/dL (9-20); Calcium 8.5 mg/dL (8.4-10.2); Carbon Dioxide 26 mmol/L (22-30); Chloride 104 mmol/L (98-107); Estimated CRCL calculation 59 ml/min; Estimated Glomerular Filt Rate 52; Glucose 53 mg/dL (65-110); Potassium 3.5 mmol/L (3.4-5.0); Sodium 137 mmol/L (137-145)
[2022-06-28] MEDS: GLUCOSE ORAL GEL 15 GM OF GLUCSE IN 37.5 GM TUBE PO (07:13)
[2022-06-28 07:40] LABS: Glucose Point of Care 62 mg/dl (65-105)
[2022-06-28] MEDS: DEXTROSE 50% 25 GM/50 ML SYRINGE IV PUSH (07:53)
[2022-06-28] MEDS: VANCOMYCIN HCL 750 MG in SODIUM CHLORIDE 0.9% IV 250 ML 250 MG IVPB (08:21)
[2022-06-28] MEDS: FUROSEMIDE INJ 40 MG/4 ML VIAL IV PUSH ×2 (08:23→17:51)
[2022-06-28] MEDS: polyethylene glycoL 3350 17 GM POWD.PACK PO (08:23)
[2022-06-28] MEDS: CHOLECALCIFEROL 1,000 UNITS TABLET 1000 UNITS PO (08:24)
[2022-06-28] MEDS: FERROUS SULFATE 324 MG TABLET PO ×2 (08:24→17:51)
[2022-06-28] MEDS: SACUBITRIL/VALSARTAN 24-26 MG TABLET 1 TAB PO ×2 (08:24→21:24)
[2022-06-28] MEDS: ASPIRIN 325 MG TABLET PO (08:24)
[2022-06-28] MEDS: metFORMIN HCL 500 MG TABLET PO ×2 (08:24→17:50)
[2022-06-28] MEDS: carvediloL 12.5 MG TABLET PO ×2 (08:24→17:51)
[2022-06-28] MEDS: EMPAGLIFLOZIN 10 MG TABLET PO (08:24)
[2022-06-28 08:57] LABS: Glucose Point of Care 161 mg/dl (65-105)
--- NOTE | 2022-06-28 10:57 | PM.PNCARD ---
Progress Note: A&P Assessment and Plan (1) Acute on chronic systolic (congestive) heart failure: Code(s): I50.23 - Acute on chronic systolic (congestive) heart failure Status: Acute Assessment and Plan: Patient has signs of volume overload. Continue with IV furosemide today, perhaps shift to p.o. tomorrow Please monitor strict I/Os, daily weights. GDMT with Coreg, low-dose Entresto and Jardiance. Monitor electrolytes and renal function Monitor for hypotension with addition of entresto Echo showed EF of 12%, which is not new Outpatient follow up with his mental health nurse at [facility] - GDMT can be further optimized in that setting Cardiology will sign off please do not hesitate to contact us with any further questions. (2) AICD (automatic cardioverter/defibrillator) present: Code(s): Z95.810 - Presence of automatic (implantable) cardiac defibrillator Status: Acute (3) Coronary artery disease: Code(s): I25.10 - Atherosclerotic heart disease of [place] coronary artery without angina pectoris Status: Acute Assessment and Plan: Stable from a CAD standpoint. Continue ASA. Consider starting statin if no contraindication. Subjective Date/time seen: 06/28/22 10:57 Cardiology follow up for cardiomyopathy More alert today. He states he is feeling well and has no complaints. He denies any shortness of breath, chest pain, palpitations. Did have 6 beats NSVT on telemetry. Review of Systems Review of Systems: All systems reviewed & are unremarkable except as noted in HPI and below Exam Const: General: no acute distress HENMT: Mouth: Yes moist mucous membranes Teeth and gingiva: poor dentition Eyes: Sclera: sclerae normal Neck: Neck: supple Resp: Effort & Inspection: normal respiratory effort Auscultation: diminished lung sounds Cardio: Rate: regular rate Rhythm: regular rhythm Heart sounds: no murmurs Skin: General skin exam: normal color Neuro: General: oriented to person, oriented to place and oriented to time Extrem: Other: Bilateral lower extremity edema, right worse than left Psych: Mental Status: mental status grossly normal Objective Data Vital Signs Vital Signs: Vital Signs - 24 hr 06/27/22 12:00 06/27/22 12:39 06/27/22 14:00 Temperature 35.9 C L 36.1 C L Pulse Rate 73 75 74 Respiratory Rate 12 16 Blood Pressure 115/65 110/66 Pulse Oximetry 100 100 Oxygen Delivery Oxygen Flow Rate 06/27/22 17:35 06/27/22 16:00 06/27/22 20:00 Temperature Pulse Rate 96 75 79 Respiratory Rate Blood Pressure Pulse Oximetry Oxygen Delivery Oxygen Flow Rate 06/27/22 21:57 06/27/22 20:00 06/28/22 00:00 Temperature 36.7 C Pulse Rate 74 74 75 Respiratory Rate 16 16 Blood Pressure 120/70 Pulse Oximetry 98 98 Oxygen Delivery Nasal Cannula Oxygen Flow Rate 2 06/28/22 04:00 06/28/22 06:00 06/28/22 08:24 Temperature 36.7 C Pulse Rate 73 70 73 Respiratory Rate 16 Blood Pressure 118/70 Pulse Oximetry 98 Oxygen Delivery Oxygen Flow Rate Intake/Output Intake/Output: Intake & Output 06/25/22 06/26/22 06/27/22 06/28/22 22:59 22:59 23:59 23:59 Intake Total 100 Output Total Balance 100 Meds/Results Medications: Active Medications Generic Name Dose Route Start Last Admin Trade Name Freq PRN Reason Stop Dose Admin Acetaminophen 325 mg 06/25/22 13:13 Acetaminophen 325 Mg Tablet PO Q4H PRN Pain Aspirin 325 mg 06/26/22 09:00 06/28/22 08:24 Aspirin 325 Mg Tablet PO 325 mg DAILY CRUZ Administration Carvedilol 12.5 mg 06/25/22 17:00 06/28/22 08:24 Carvedilol 12.5 Mg Tablet PO 12.5 mg BIDWM CRUZ Administration Dextrose 12.5 gm 06/26/22 21:37 06/28/22 07:53 Dextrose 50% 25 Gm/50 Ml Syringe IV PUSH 12.5 gm PRN PRN Administration Hypoglycemia Protocol Empagliflozin 10 mg 06/28/22 09:00 06/28/22 08:24 Empaglifl
[2022-06-28 12:37] LABS: Glucose Point of Care 210 mg/dl (65-105)
[2022-06-28] MEDS: INSULIN ASPART (*BKC) 100 UNITS/ML SUB-Q (13:20)
--- NOTE | 2022-06-28 15:56 | PM.IMPN ---
Progress Note: A&P Assessment and Plan (1) Acute pyelitis: Code(s): N10 - Acute pyelonephritis Status: Acute Assessment and Plan: Continue IV antibiotics for now, no signs of infection on exam or labs, imaging showed cystitis and pyelitis, however, he recently finished course of abx and this could be residual? started on vanc + zosyn 06/25, vanc d/c 06/26, restarted 06/27 due to worsening leukocytosis and positive MRSA swab PICC line culture pending, midline in place blood cultures remain NGTD urine culture showed mixed estella? could be negative due to recent UTI treated with rocephin via PICC until 06/21 Crp 1.1 06/26 PCT 0.2 06/26 (2) Acute on chronic diastolic congestive heart failure, NYHA class 4: Code(s): I50.33 - Acute on chronic diastolic (congestive) heart failure Status: Acute Assessment and Plan: Appreciate cardiology consultation, started on IV Lasix twice daily, continue Coreg and started low-dose Entresto and Jardiance, monitor 06/28: Improving (3) Chronic arterial ischemic stroke: Code(s): I69.30 - Unspecified sequelae of cerebral infarction Status: Acute Assessment and Plan: Stable, at baseline (4) Hemiparesis: Code(s): G81.90 - Hemiplegia, unspecified affecting unspecified side Status: Acute Assessment and Plan: Stable, at baseline (5) AICD (automatic cardioverter/defibrillator) present: Code(s): Z95.810 - Presence of automatic (implantable) cardiac defibrillator Status: Acute (6) Urinary tract infection: Code(s): N39.0 - Urinary tract infection, site not specified Status: Acute Assessment and Plan: urine culture showed no infection, mixed estella, see above for details (7) Aphasia: Code(s): R47.01 - Aphasia Status: Acute Assessment and Plan: Stable at baseline Plan DVT prophylaxis with SCDs GI prophylaxis not indicated Code status full code Subjective Date/time seen: 06/28/22 15:56 Interval history: 56-year-old male [place] [facility] resident with past medical history significant for multiple strokes and remaining right-sided hemiparesis, heart failure with an EF of 10-15%, AICD placement, aphasia presenting with lethargy thought to be secondary to cystitis/pyelitis, started on vancomycin and Zosyn 06/25, also thought to have acute on chronic heart failure exacerbation being treated with IV diuresis prn. Patient states he feels much better today than yesterday. No overnight events noted. No chest pain or shortness of breath. No nausea, vomiting or diarrhea. No fevers or chills. Review of Systems Review of Systems: 12 point review of systems was assessed and was negative except as noted in the HPI Exam Narrative: General: No acute distress, alert and oriented per baseline HEENT: Atraumatic, normocephalic, mucous membranes moist CV: Regular rate and rhythm, S1, S2 Lungs: Clear to auscultation bilaterally, no rales or crackles noted, no wheezes, good air entry Abdomen: Soft, nontender, nondistended Extremities: 1+ pitting edema bilateral lower extremities Skin: No rashes noted, no lesions or wounds seen Psych: Euthymic, irritable Objective Data Vital Signs Vital Signs: Vital Signs - 24 hr 06/27/22 17:35 06/27/22 16:00 06/27/22 20:00 Temperature Pulse Rate 96 75 79 Respiratory Rate Blood Pressure Pulse Oximetry Oxygen Delivery Oxygen Flow Rate 06/27/22 21:57 06/27/22 20:00 06/28/22 00:00 Temperature 98.1 F Pulse Rate 74 74 75 Respiratory Rate 16 16 Blood Pressure 120/70 Pulse Oximetry 98 98 Oxygen Delivery Nasal Cannula Oxygen Flow Rate 2 06/28/22 04:00 06/28/22 06:00 06/28/22 08:24 Temperature 98.1 F Pulse Rate 73 70 73 Respiratory Rate 16 Blood Pressure 118/70 Pulse Oximetry 98 Oxygen Delivery Oxygen Flow Rate 06/28/22 11:15 06/28/22 14:00 Temperature 97.1 F L P
[2022-06-28 18:12] LABS: Glucose Point of Care 114 mg/dl (65-105)
[2022-06-28 21:05] LABS: Glucose Point of Care 160 mg/dl (65-105)
[2022-06-28] MEDS: INSULIN GLARGINE (*BKC) 100 UNITS/ML 25 UNITS SUB-Q (21:25)
[2022-06-29] VITALS (12 sets, daily range): BP systolic 99–121; BP diastolic 52–69; PULSE 69–86; RESP 16–18; TEMP 36.6–36.8; O2SAT 96–99
[2022-06-29] MEDS: PIPERACILLN/TAZ 3.375GM/NS50ML 3.375 GM/50 ML BAG IVPB ×5 (01:23→23:29)
[2022-06-29] MEDS: CENTRAL LINE FLUSH 10 ML IV PUSH ×3 (06:05→23:30)
[2022-06-29] MEDS: SALINE LOCK FLUSH 10 ML IV PUSH (06:05)
[2022-06-29 06:09] LABS: Basophils Absolute Auto 0.2 K/mm3 (0.0-0.1); Basophils Percent Auto 1.4 % (0.2-1.2); Eosinophils Absolute Auto 0.4 K/mm3 (0-0.3); Eosinophils Percent Auto 2.4 % (0-4.4); Hemoglobin 12.1 g/dL (14.0-18.0); Immature Granulocyte Absolute 0.06 K/mm3 (0.00-0.031); Immature Granulocyte Percent A 0.4 % (0-0.5); Lymphocytes Absolute Auto 3.66 K/mm3 (0.9-3.2); Mean Corpuscular HGB Conc 32.7 g/dl (32-36); Mean Corpuscular Volume 88.7 fl (80-100); Mean Platelet Volume 8.8 fl (7.4-10.4); Monocytes Absolute Auto 1.8 K/mm3 (0.1-0.6); Monocytes Percent Auto 11.1 % (2.6-8.5); Neutrophils Absolute Auto 9.8 K/mm3 (1.3-6.7); Neutrophils Percent Auto 61.7 % (45.5-73.1); Platelet Count Result 470 k/mm3 (150-375); Red Blood Count 4.17 M/mm3 (4.6-6.20); Red Cell Distribution Width 15.2 % (11.5-14.5); White Blood Count 15.9 K/mm3 (4.5-10.0)
[2022-06-29 06:15] LABS: Alanine Aminotransferase 15 U/L (6-50); Alkaline Phosphatase 65 U/L (38-126); Anion Gap 6 mmol/L (8-16); Aspartate Amino Transferase 18 U/L (17-59); Bilirubin,Total 0.7 mg/dL (0.2-1.3); Blood Urea Nitrogen 18 mg/dL (9-20); Calcium 8.6 mg/dL (8.4-10.2); Carbon Dioxide 27 mmol/L (22-30); Chloride 101 mmol/L (98-107); Estimated CRCL calculation 59 ml/min; Estimated Glomerular Filt Rate 52; Glucose 70 mg/dL (65-110); Potassium 3.3 mmol/L (3.4-5.0); Sodium 134 mmol/L (137-145)
[2022-06-29] MEDS: FUROSEMIDE INJ 40 MG/4 ML VIAL IV PUSH (08:34)
[2022-06-29] MEDS: ASPIRIN 325 MG TABLET PO (08:34)
[2022-06-29] MEDS: EMPAGLIFLOZIN 10 MG TABLET PO (08:34)
[2022-06-29] MEDS: CHOLECALCIFEROL 1,000 UNITS TABLET 1000 UNITS PO (08:34)
[2022-06-29] MEDS: SACUBITRIL/VALSARTAN 24-26 MG TABLET 1 TAB PO ×2 (08:34→23:31)
[2022-06-29] MEDS: FERROUS SULFATE 324 MG TABLET PO ×2 (08:34→17:07)
[2022-06-29] MEDS: carvediloL 12.5 MG TABLET PO ×2 (08:34→17:08)
[2022-06-29] MEDS: metFORMIN HCL 500 MG TABLET PO ×2 (08:34→17:08)
[2022-06-29] MEDS: polyethylene glycoL 3350 17 GM POWD.PACK PO (08:35)
[2022-06-29 08:42] LABS: Glucose Point of Care 100 mg/dl (65-105)
[2022-06-29 12:15] LABS: Glucose Point of Care 152 mg/dl (65-105)
[2022-06-29] MEDS: POTASSIUM CHLORIDE 20 MEQ TABLET 40 MEQ PO (13:18)
[2022-06-29 14:05] LABS: Appearance Urine Cloudy (Clear); Bacteria Urine None Seen /hpf; Bilirubin Urine Negative (Negative); Budding Yeast Urine Present /hpf; Color Urine Yellow (Yellow); Glucose Urine UA 2+ mg/dL (Negative); Ketones Urine Negative (Negative); Leukocyte Esterase Ur 3+ LEU/UL (NEGATIVE); Nitrate Urine Negative (Negative); Non Pathogenic Casts 0-2; Protein Urine Trace mg/dL (Negative); Specific Grav Ur 1.009 (1.001-1.035); Squamous Epithelial Cell Urine None seen /hpf (Few); Urobilinogen Urine 0.2 mg/dL (<2.0); WBC Clumps Urine Present /HPF; WBC Urine >100 /hpf (0-3); pH Urine 5.5 (5.0-9.0)
[2022-06-29 14:08] LABS: Add Urine Microscopic? YES
[2022-06-29 16:29] LABS: Glucose Point of Care 140 mg/dl (65-105)
--- NOTE | 2022-06-29 19:03 | PM.IMPN ---
Progress Note: A&P Assessment and Plan (1) Acute pyelitis: Code(s): N10 - Acute pyelonephritis Status: Acute Assessment and Plan: Continue IV antibiotics for now, no signs of infection on exam or labs, imaging showed cystitis and pyelitis, however, he recently finished course of abx and this could be residual? started on vanc + zosyn 06/25, vanc d/c 06/26, restarted 06/27 due to worsening leukocytosis and positive MRSA swab PICC line removed, culture negative blood cultures from 06/24 remain NGTD, repeat blood cultures ordered 06/29 due to worsening leukocytosis urine culture showed mixed estella? could be negative due to recent UTI treated with rocephin via PICC until 06/21 Leukocytosis continues to fluctuate, up to 15.9 today from 14.1 yesterday Chest x-ray 06/29 significantly improved from 06/27, still with some mild pulmonary congestion, likely near baseline due to EF 12% Crp 1.1, PCT 0.2 06/26, repeat ordered for 06/30, if they are still negative and leukocytosis is essentially unchanged and cultures remain negative, would d/c on no abx as he would be s/p 7 days of IV abx and no source found (2) Acute on chronic diastolic congestive heart failure, NYHA class 4: Code(s): I50.33 - Acute on chronic diastolic (congestive) heart failure Status: Acute Assessment and Plan: Appreciate cardiology consultation, started on IV Lasix twice daily, continue Coreg and started low-dose Entresto and Jardiance, monitor 06/28: Improving 06/29: transitioned to oral diuresis in anticipation of d/c home tomorrow (3) Chronic arterial ischemic stroke: Code(s): I69.30 - Unspecified sequelae of cerebral infarction Status: Acute Assessment and Plan: Stable, at baseline (4) Hemiparesis: Code(s): G81.90 - Hemiplegia, unspecified affecting unspecified side Status: Acute Assessment and Plan: Stable, at baseline (5) AICD (automatic cardioverter/defibrillator) present: Code(s): Z95.810 - Presence of automatic (implantable) cardiac defibrillator Status: Acute (6) Urinary tract infection: Code(s): N39.0 - Urinary tract infection, site not specified Status: Acute Assessment and Plan: urine culture showed no infection, mixed estella, see above for details (7) Aphasia: Code(s): R47.01 - Aphasia Status: Acute Assessment and Plan: Stable at baseline Plan DVT prophylaxis with SCDs GI prophylaxis not indicated Code status full code Subjective Date/time seen: 06/29/22 19:03 Interval history: 56-[facility] with past medical history significant for multiple strokes and remaining right-sided hemiparesis, heart failure with an EF of 10-15%, AICD placement, aphasia presenting with lethargy thought to be secondary to cystitis/pyelitis, started on vancomycin and Zosyn 06/25, also thought to have acute on chronic heart failure exacerbation being treated with IV diuresis. Patient states he continues to feel better. His mentation and energy level are back to baseline per patient. No overnight events noted. No chest pain or shortness of breath. No nausea, vomiting or diarrhea. No fevers or chills. Review of Systems Review of Systems: 12 point review of systems was assessed and was negative except as noted in the HPI Exam Narrative: General: No acute distress, alert and oriented per baseline HEENT: Atraumatic, normocephalic, mucous membranes moist CV: Regular rate and rhythm, S1, S2 Lungs: Clear to auscultation bilaterally, no rales or crackles noted, no wheezes, good air entry Abdomen: Soft, nontender, nondistended Extremities: Trace edema bilateral lower extremities Skin: No rashes noted, no lesions or wounds seen Psych: Euthymic, irritable Objective Data Vital Signs Vital Signs: Vital Signs - 24 hr 06/28/22 22:00 06/28/22 20:00 06/28/22 20:00 Temperature 98.1 F Pulse Rate 70 85
[2022-06-29 21:00] LABS: Glucose Point of Care 150 mg/dl (65-105)
[2022-06-29] MEDS: INSULIN GLARGINE (*BKC) 100 UNITS/ML 25 UNITS SUB-Q (23:32)
[2022-06-30] VITALS (11 sets, daily range): BP systolic 101–134; BP diastolic 59–73; PULSE 72–86; RESP 16–18; TEMP 35.7–37.1; O2SAT 95–98
[2022-06-30 05:38] LABS: Basophils Absolute Auto 0.2 K/mm3 (0.0-0.1); Basophils Percent Auto 1.4 % (0.2-1.2); Eosinophils Absolute Auto 0.4 K/mm3 (0-0.3); Eosinophils Percent Auto 2.9 % (0-4.4); Hematocrit 37.2 % (42.0-52.0); Immature Granulocyte Absolute 0.08 K/mm3 (0.00-0.031); Immature Granulocyte Percent A 0.6 % (0-0.5); Lymphocytes Absolute Auto 3.82 K/mm3 (0.9-3.2); Lymphocytes Percent Auto 26.3 % (18.3-44.2); Mean Corpuscular HGB Conc 32.3 g/dl (32-36); Mean Corpuscular Hemoglobin 28.9 pg (26-34); Mean Corpuscular Volume 89.6 fl (80-100); Mean Platelet Volume 8.7 fl (7.4-10.4); Monocytes Absolute Auto 1.4 K/mm3 (0.1-0.6); Monocytes Percent Auto 9.4 % (2.6-8.5); Neutrophils Absolute Auto 8.6 K/mm3 (1.3-6.7); Neutrophils Percent Auto 59.4 % (45.5-73.1); Platelet Count Result 487 k/mm3 (150-375); Red Blood Count 4.15 M/mm3 (4.6-6.20); Red Cell Distribution Width 15.3 % (11.5-14.5); White Blood Count 14.5 K/mm3 (4.5-10.0)
[2022-06-30] MEDS: PIPERACILLN/TAZ 3.375GM/NS50ML 3.375 GM/50 ML BAG IVPB (05:46)
[2022-06-30 05:55] LABS: Alanine Aminotransferase 16 U/L (6-50); Albumin Level 3.9 g/dL (3.5-5.1); Alkaline Phosphatase 62 U/L (38-126); Anion Gap 7 mmol/L (8-16); Aspartate Amino Transferase 20 U/L (17-59); Bilirubin,Total 0.7 mg/dL (0.2-1.3); Blood Urea Nitrogen 16 mg/dL (9-20); CRP 1.3 mg/dL (<1.0); Calcium 8.4 mg/dL (8.4-10.2); Carbon Dioxide 27 mmol/L (22-30); Chloride 103 mmol/L (98-107); Estimated CRCL calculation 59 ml/min; Estimated Glomerular Filt Rate 52; Glucose 86 mg/dL (65-110); Potassium 3.3 mmol/L (3.4-5.0); Sodium 137 mmol/L (137-145)
[2022-06-30 06:39] LABS: Procalcitonin 0.2 ng/mL
[2022-06-30] MEDS: CENTRAL LINE FLUSH 10 ML IV PUSH ×3 (06:55→20:29)
--- NOTE | 2022-06-30 08:17 | PM.IMPN ---
Progress Note: A&P Assessment and Plan (1) Acute pyelitis: Code(s): N10 - Acute pyelonephritis Status: Acute Assessment and Plan: Started on vanc + zosyn 06/25, vanc d/c 06/26, restarted 06/27 due to worsening leukocytosis and positive MRSA swab PICC line removed, culture negative blood cultures from 06/24 remain NGTD, repeat blood cultures ordered 06/29 due to worsening leukocytosis urine culture showed mixed estella? could be negative due to recent UTI treated with rocephin via PICC until 06/21 Leukocytosis continues to fluctuate, up to 15.9 today from 14.1 yesterday Chest x-ray 06/29 significantly improved from 06/27, still with some mild pulmonary congestion, likely near baseline due to EF 12% Crp 1.1, PCT 0.2 06/26 and 06/30. BCx 06/29 pending. If they are negative and leukocytosis is essentially unchanged, then plan discharge tomorrow. (2) Acute on chronic combined systolic and diastolic congestive heart failure: Code(s): I50.43 - Acute on chronic combined systolic (congestive) and diastolic (congestive) heart failure Status: Acute Assessment and Plan: Echo showing EF 12% with abnormal diastolic function. Mild to moderate MR noted. Appreciate cardiology consultation. Started on IV Lasix. Coreg, Entresto and Jardiance added. Transitioned to oral Lasix. Cr elevated but unchanged past few days. Follow (3) EDER (acute kidney injury): Code(s): N17.9 - Acute kidney failure, unspecified Status: Acute Assessment and Plan: Cr normal on admission but climbed to 1.4. Cr stable past few days. Related to abx (Zosyn and Vanc) and/or Entresto or Cr artificially low since he was fluid overloaded on admission. Change to Rocephin and Doxycycline. (4) Chronic arterial ischemic stroke: Code(s): I69.30 - Unspecified sequelae of cerebral infarction Status: Acute Assessment and Plan: Stable, at baseline (5) Hemiparesis: Code(s): G81.90 - Hemiplegia, unspecified affecting unspecified side Status: Acute Assessment and Plan: Stable, at baseline (6) AICD (automatic cardioverter/defibrillator) present: Code(s): Z95.810 - Presence of automatic (implantable) cardiac defibrillator Status: Acute Assessment and Plan: No discharge (7) Urinary tract infection: Code(s): N39.0 - Urinary tract infection, site not specified Status: Acute Assessment and Plan: urine culture showed no infection, mixed estella. UTI ruled out. (8) Aphasia: Code(s): R47.01 - Aphasia Status: Acute Assessment and Plan: Stable at baseline (9) Diabetes mellitus: Code(s): E11.9 - Type 2 diabetes mellitus without complications Status: Acute Assessment and Plan: A1c 6.3. The patient's blood glucose was reviewed on 06/30 Glucose remains well controlled. Continue AccuCheks covering with sliding scale. Hypoglycemia protocol available as needed. Continue current medications. Plan DVT prophylaxis with SCDs GI prophylaxis not indicated Code status full code Subjective Date/time seen: 06/30/22 08:17 Interval history: 56yo male [facility] resident with past medical history significant for multiple strokes and remaining right-sided hemiparesis, heart failure with an EF of 10-15%, AICD placement, aphasia presenting with lethargy thought to be secondary to cystitis/pyelitis, started on vancomycin and Zosyn 06/25, also thought to have acute on chronic heart failure exacerbation being treated with IV diuresis. Assuming care. Chart reviewed. Patient denies CP or SOB. Denies abd pain. SLept well. Paucity of speech noted. Exam Narrative: AF 98.0 101/59 72 16 98% ra Gen - NARD lying almost flat in bed Chest - clear anteriorly and in the flanks, nml RR CV - RRR S1/S2 Abd - Soft, ND, fullness in the suprapubic region. Ext - No pedal edema Neuro - awakens easily. paucity of speech. Skin - Warm
[2022-06-30 08:27] LABS: Glucose Point of Care 100 mg/dl (65-105)
[2022-06-30] MEDS: DOXYCYCLINE HYCLATE 100 MG TABLET PO ×2 (09:41→20:29)
[2022-06-30] MEDS: ASPIRIN 325 MG TABLET PO (09:41)
[2022-06-30] MEDS: metFORMIN HCL 500 MG TABLET PO ×2 (09:41→17:24)
[2022-06-30] MEDS: FUROSEMIDE 40 MG TABLET PO (09:41)
[2022-06-30] MEDS: SACUBITRIL/VALSARTAN 24-26 MG TABLET 1 TAB PO ×2 (09:42→20:29)
[2022-06-30] MEDS: POTASSIUM CHLORIDE 20 MEQ TABLET 40 MEQ PO (09:42)
[2022-06-30] MEDS: CHOLECALCIFEROL 1,000 UNITS TABLET 1000 UNITS PO (09:42)
[2022-06-30] MEDS: FERROUS SULFATE 324 MG TABLET PO ×2 (09:42→17:25)
[2022-06-30] MEDS: carvediloL 12.5 MG TABLET PO ×2 (09:42→17:24)
[2022-06-30] MEDS: EMPAGLIFLOZIN 10 MG TABLET PO (09:42)
[2022-06-30 12:53] LABS: Glucose Point of Care 143 mg/dl (65-105)
[2022-06-30 17:33] LABS: Glucose Point of Care 88 mg/dl (65-105)
[2022-06-30 21:24] LABS: Glucose Point of Care 95 mg/dl (65-105)
[2022-06-30] MEDS: INSULIN GLARGINE (*BKC) 100 UNITS/ML 10 UNITS SUB-Q (21:30)
[2022-07-01] VITALS (7 sets, daily range): BP systolic 104–126; BP diastolic 60–65; PULSE 82–90; RESP 16–20; TEMP 36.4–37.1; O2SAT 94–98
[2022-07-01] MEDS: CENTRAL LINE FLUSH 10 ML IV PUSH ×2 (05:49→15:05)
[2022-07-01 06:42] LABS: Basophils Absolute Auto 0.2 K/mm3 (0.0-0.1); Basophils Percent Auto 1.3 % (0.2-1.2); Eosinophils Absolute Auto 0.5 K/mm3 (0-0.3); Eosinophils Percent Auto 3.3 % (0-4.4); Hematocrit 38.6 % (42.0-52.0); Hemoglobin 12.3 g/dL (14.0-18.0); Immature Granulocyte Absolute 0.08 K/mm3 (0.00-0.031); Immature Granulocyte Percent A 0.5 % (0-0.5); Lymphocytes Absolute Auto 3.92 K/mm3 (0.9-3.2); Lymphocytes Percent Auto 26.3 % (18.3-44.2); Mean Corpuscular HGB Conc 31.9 g/dl (32-36); Mean Corpuscular Hemoglobin 29.6 pg (26-34); Mean Corpuscular Volume 92.8 fl (80-100); Monocytes Absolute Auto 1.4 K/mm3 (0.1-0.6); Monocytes Percent Auto 9.4 % (2.6-8.5); Neutrophils Absolute Auto 8.8 K/mm3 (1.3-6.7); Neutrophils Percent Auto 59.2 % (45.5-73.1); Platelet Count Result 499 k/mm3 (150-375); Red Blood Count 4.16 M/mm3 (4.6-6.20); Red Cell Distribution Width 15.5 % (11.5-14.5); White Blood Count 14.9 K/mm3 (4.5-10.0)
[2022-07-01 07:02] LABS: Alanine Aminotransferase 15 U/L (6-50); Albumin Level 3.8 g/dL (3.5-5.1); Alkaline Phosphatase 63 U/L (38-126); Anion Gap 6 mmol/L (8-16); Aspartate Amino Transferase 21 U/L (17-59); Bilirubin,Total 0.6 mg/dL (0.2-1.3); Blood Urea Nitrogen 17 mg/dL (9-20); Calcium 8.4 mg/dL (8.4-10.2); Carbon Dioxide 30 mmol/L (22-30); Chloride 100 mmol/L (98-107); Estimated CRCL calculation 59 ml/min; Estimated Glomerular Filt Rate 52; Glucose 50 mg/dL (65-110); Magnesium 1.6 mg/dL (1.6-2.3); Potassium 3.3 mmol/L (3.4-5.0); Sodium 136 mmol/L (137-145)
[2022-07-01 07:41] LABS: Glucose Point of Care 92 mg/dl (65-105)
[2022-07-01] MEDS: CHOLECALCIFEROL 1,000 UNITS TABLET 1000 UNITS PO (09:09)
[2022-07-01] MEDS: SACUBITRIL/VALSARTAN 24-26 MG TABLET 1 TAB PO (09:09)
[2022-07-01] MEDS: FUROSEMIDE 40 MG TABLET PO (09:09)
[2022-07-01] MEDS: ASPIRIN 325 MG TABLET PO (09:09)
[2022-07-01] MEDS: metFORMIN HCL 500 MG TABLET PO (09:09)
[2022-07-01] MEDS: carvediloL 12.5 MG TABLET PO (09:09)
[2022-07-01] MEDS: EMPAGLIFLOZIN 10 MG TABLET PO (09:09)
[2022-07-01] MEDS: FERROUS SULFATE 324 MG TABLET PO (09:09)
[2022-07-01] MEDS: DOXYCYCLINE HYCLATE 100 MG TABLET PO (09:09)
[2022-07-01 12:10] LABS: Glucose Point of Care 196 mg/dl (65-105)
--- NOTE | 2022-07-01 13:52 | PM.DS ---
DS: Admitting Diagnosis Discharge Date 07/01/22 Admitting Diagnosis Altered mental status DS: Discharge Diagnosis Discharge Diagnosis (1) Acute pyelitis: Code(s): N10 - Acute pyelonephritis Status: Acute (2) Acute on chronic combined systolic and diastolic congestive heart failure: Code(s): I50.43 - Acute on chronic combined systolic (congestive) and diastolic (congestive) heart failure Status: Acute (3) EDER (acute kidney injury): Code(s): N17.9 - Acute kidney failure, unspecified Status: Acute (4) Chronic arterial ischemic stroke: Code(s): I69.30 - Unspecified sequelae of cerebral infarction Status: Acute (5) Hemiparesis: Code(s): G81.90 - Hemiplegia, unspecified affecting unspecified side Status: Acute (6) AICD (automatic cardioverter/defibrillator) present: Code(s): Z95.810 - Presence of automatic (implantable) cardiac defibrillator Status: Acute (7) Urinary tract infection: Code(s): N39.0 - Urinary tract infection, site not specified Status: Acute (8) Aphasia: Code(s): R47.01 - Aphasia Status: Acute (9) Diabetes mellitus: Code(s): E11.9 - Type 2 diabetes mellitus without complications Status: Acute DS: Summary Hospital Course Reason for hospitalization: 56yo male shelter resident with past medical history significant for multiple strokes and remaining right-sided hemiparesis, heart failure with an EF of 10-15%, AICD placement, aphasia presenting with lethargy. Please see H&P for details. Hospital Course: Patient was admitted for lethargy. CT the brain showed no acute process but did show multiple infarcts. Please see report for details. Chest x-ray showed mild interstitial opacities and bronchial wall thickening consistent with CHF. CT of the abdomen and pelvis also had lung findings consistent with CHF. There is also findings suggestive of cystitis and right pyelitis. WBC 17.8 K. He was started on vancomycin + Zosyn 06/25. Vancomycin d/c 06/26 but restarted 06/27 due to worsening leukocytosis and positive MRSA swab. WBC peaked at 15.9. PICC line removed. BCx negative. UCx negative. Repeat BCx 06/29 remain negative. Repeat UCx 06/29 also negative. Echo showing EF 12% with abnormal diastolic function. Mild to moderate MR noted. Appreciate cardiology consultation. Started on IV Lasix. Coreg, Entresto and Jardiance added. Transitioned to oral Lasix. Cr elevated but unchanged past few days. Cr normal on admission but climbed to 1.4. Cr remained stable past few days. Related to abx (Zosyn and Vanc) and/or Entresto and/or Cr was artificially low since he was fluid overloaded on admission. Abx changed to Rocephin and Doxycycline. He completed a 7 day course of abx for the pyelitis. Continue Doxycycline to complete a 7 day course for MRSA bronchitis. He overall did well. Was able to be discharged on 07/01/2022. Status at Discharge Cognitive/behavioral status at discharge: Stable Time Spent with Patient Time attestation: Total time spent providing and/or coordinating discharge services: 34 minutes Time spent: Greater than 30 minutes Exam Narrative: AF 98.7 126/65 90 20 98% ra Gen - NARD lying almost flat in bed Chest - clear anteriorly and in the flanks, nml RR CV - RRR S1/S2. Tele showing no significant dysrhythmias Abd - Soft, ND/NT, +BS Ext - No pedal edema Neuro - awakens easily. paucity of speech. Skin - Warm and dry DS: Data Data Completed and Pending Labs on day of discharge: Labs from last 24 hours 07/01/22 07/01/22 07/01/22 12:06 07:37 06:11 WBC RBC Hgb Hct MCV MCH MCHC RDW Plt Count MPV Immature Gran % (Auto) Neut % (Auto) Lymph % (Auto) [place] % (Auto) Eos % (Auto) Baso % (Auto) Lymph # (Auto) [place] # (Auto) Eos # (Auto) Baso # (Auto) Abs Immat Gran (auto) Absolute Neuts (auto) Abs
[2022-07-01] MEDS: POTASSIUM CHLORIDE 20 MEQ TABLET PO (15:05)
[2022-07-01 16:13] LABS: EDCOVIDSCREEN Negative (Negative)
== END 2022-07-01 16:10 | DRG 291 ==
LOC: ANHED 23:58 → ANH3MED 06-25 01:04
PROVIDERS: Student in an Organized Health Care Education/Training Program; Admitting Provider Internal Medicine; Emergency Provider Physician Assistant; Visit Provider Internal Medicine
DX: I11.0 Hypertensive heart disease with heart failure (principal); I50.43 Acute on chronic combined systolic (congestive) and diastolic (congestive) heart failure; N10 Acute pyelonephritis; R47.01 Aphasia; I69.351 Hemiplegia and hemiparesis following cerebral infarction affecting right dominant side; N17.9 Acute kidney failure, unspecified; N39.0 Urinary tract infection, site not specified; Z95.810 Presence of automatic (implantable) cardiac defibrillator; E11.9 Type 2 diabetes mellitus without complications; Z20.822 Contact with and (suspected) exposure to COVID-19
CPT/HCPCS: 36415; 36569; 70450; 71045; 71046; 74177; 80053; 80202; 81001; 82140; 82948; 83036; 83605; 83735; 83880; 84145; 85025; 86140; 87040; 87070; 87081; 87086; 87088; 87205; 87426; 93005; 94640; 96361; 96365; 96366; 96367; 96375; 99285; A9270; C1751; C8929; C9803; G0378; J0696; J0744; J1815; J1940; J2543; J3370; J7030; J7050; Q9957; Q9967